=== PATIENT | male | born 1985 | race Caucasian/White ===

== ENCOUNTER 2017-04-30 21:12 | Emergency (ER) | payer OTHER ==
[2017-04-30 21:22] VITALS: BMI 28.3
[2017-04-30] MEDS ORDERED: SODIUM CHLORIDE 0.9% 1000 ML INFUS.BAG IV ONE (22:05)
[2017-04-30] MEDS ORDERED: ONDANSETRON 4 MG/2 ML VIAL IVPUSH ONE (22:05)
[2017-04-30] MEDS ORDERED: FAMOTIDINE 20 MG/50 ML IVPB 50 ML IVPB ONE ×2 (22:05→23:09)
[2017-04-30] MEDS ORDERED: PANTOPRAZOLE SODIUM 40 MG in SODIUM CHLORIDE 100 ML IVPB ONE (22:05)
[2017-04-30] MEDS ORDERED: MAG HYDROX/AL HYDROX/SIMETH 355 ML ORAL.SUSP PO ONE (22:05)
[2017-04-30] MEDS ORDERED: MAG HYDROX/AL HYDROX/SIMETH 30 ML UNIT-DOSE CUP ONE ×2 (23:09)
[2017-04-30] MEDS ORDERED: ONDANSETRON 4 MG/2 ML VIAL ONE (23:09)
[2017-04-30] MEDS ORDERED: PANTOPRAZOLE SODIUM 100 ML IVPB ONE (23:09)
[2017-04-30 23:22] LABS: MCH 28.7 pg (25.7-33.7); MCHC 33.6 g/dl (32.0-35.9); MEAN CELL VOLUME 85.5 fl (80-96); MEAN PLT VOLUME 8.2 fl (7.5-11.1); PLATELET COUNT 225 K/MM3 (134-434); RDW 13.6 % (11.9-15.9); WHITE BLOOD COUNT 8.5 K/mm3 (4.0-10.0)
[2017-04-30 23:51] LABS: ALK PHOS 79 U/L (45-117); ANION GAP 11 (8-16); BILIRUBIN,TOTAL 0.5 mg/dL (0.2-1.0); CALCIUM 8.4 mg/dL (8.5-10.1); CO2 26 mmol/L (21-32); CREATININE 0.8 mg/dL (0.7-1.3); GLUCOSE,RANDOM 92 mg/dL (74-106); SGOT/AST 38 U/L (15-37); SGPT/ALT 49 U/L (12-78)
--- NOTE | 2017-05-01 00:17 | PDOC ---
History of Present Illness - General Chief Complaint: Chest Pain Stated Complaint: NAUSEA,PAIN Time Seen by Provider: 04/30/17 21:47 - History of Present Illness Initial Comments: 05/01/17 00:44 CHIEF COMPLAINT: abdominal pain HISTORY OF PRESENT ILLNESS: 32 yo M with no PMH presents to ED with epigastric discomfort x 3 days. Patient states that he has been feeling "like I'm hungry, but it also hurts." He reports that he has felt nauseous and dizzy but has not vomited, had fever, or any diarrhea. He states that he has been taking laxatives since October prescribed by his primary care doctor because he has trouble moving his bowels sometimes. His last bowel movement was today prior to arrival to the ER. He denies drinking any alcohol since February. No recent travel or sick contacts. PAST MEDICAL HISTORY: Denies past medical history FAMILY HISTORY: Denies SOCIAL HISTORY: Denies tobacco, alcohol, illicit drug use. SURGICAL HISTORY: appendectomy ALLERGIES: PCN REVIEW OF SYSTEMS General/Constitutional: Denies fever or chills. Denies weakness, weight change. HEENT: Denies change in vision. Denies ear pain or discharge. Denies sore throat. Cardiovascular: Denies chest pain or shortness of breath. Respiratory: Denies cough, wheezing, or hemoptysis. Gastrointestinal: Nausea, epigastric discomfort x 2 days. Denies vomiting, diarrhea or constipation. Denies rectal bleeding. Genitourinary: Denies dysuria, frequency, or change in urination. Musculoskeletal: Denies joint or muscle swelling or pain. Denies neck or back pain. Skin and breasts: Denies rash or easy bruising. Neurologic: Denies headache, vertigo, loss of consciousness, or loss of sensation. PHYSICAL EXAM General Appearance: Well-appearing, appropriately dressed. No apparent distress , no intoxication. HEENT: EOMI, PERRLA, normal ENT inspection, normal voice, TMs normal, pharynx normal. No conjunctival pallor. No photophobia, scleral icterus. Neck: Supple. Trachea midline. No tenderness, rigidity, carotid bruit, stridor , lymphadenopathy, or thyromegaly. Respiratory/Chest: Lungs CTAB. Cardiovascular: RRR. S1, S2. Gastrointestinal/Abdominal: Mild epigastric tenderness. Normal bowel sounds. Abdomen soft, non-distended. No tenderness or rebound tenderness. No organomegaly, pulsatile mass, guarding, hernia, hepatomegaly, splenomegaly. Lymphatic: No adenopathy, tenderness. Musculoskeletal/Extremities: Normal inspection. FROM of all extremities, normal capillary refill. Pelvis Stable. No CVA tenderness. No tenderness to extremities, pedal edema, swelling, erythema or deformity. Integumentary: Appropriate color, dry, warm. No cyanosis, erythema, jaundice or rash Neurologic: customer account manager II-XII intact. Fully oriented, alert. Appropriate mood/affect. Motor strength 5/5. No appreciable EOM palsy, facial droop or sensory deficit. Past History - Past Medical History Allergies/Adverse Reactions: Allergies Allergy/AdvReac Type Severity Reaction Status Date / Time Penicillins Allergy Verified 04/30/17 21:19 Home Medications: Ambulatory Orders Pantoprazole Sodium [Protonix] 40 mg PO DAILY #14 tablet. 05/01/17 Cardiac Disorders: Yes (heart murmur) - Surgical History Appendectomy: Yes - Psycho/Social/Smoking Cessation Hx Suicidal Ideation: No Smoking History: Never smoked *Physical Exam - Vital Signs Last Vital Signs Temp Pulse Resp BP Pulse Ox 98.9 F 67 18 132/79 100 04/30/17 21:19 04/30/17 21:19 04/30/17 21:19 04/30/17 21:19 04/30/17 21:19 ED Treatment Course - LABORATORY CBC & Chemistry Diagram: 04/30/17 23:15 04/30/17 23:15 - ADDITIONAL ORDERS Additional order review: Laboratory Results 04/30/17 23:15 Sodium 141 Potassium 3.6 Chloride 104 Carbon Dioxide 26 Anion Gap 11 BUN 19 H Creatinine 0.8 Creat Clearance w eGFR > 60 Random Glucose 92 Calcium 8.4 L Total Bilirubin 0.5 AST 38 H ALT 49 Alkaline Phosphatase 79 Total Protein 7.0 Albumin 4.0 Lipase 199 04/30/17 23:15 RBC 5.16 MCV 85.5 MCHC 33.6 RDW 13.6 MPV 8.2 - Medications Given in the ED: ED Medications Discontinued Medications Generic Name Dose Route Start Last Admin Trade Name Freq PRN Reason Stop Dose Admin Al Hydroxide/Mg Hydroxide 30 ml 04/30/17 22:05 04/30/17 23:10 Mylanta Suspension - PO 04/30/17 22:06 30 ml ONCE ONE Administration Famotidine/Sodium Chloride 50 mls @ 100 mls/hr 04/30/17 22:05 04/30/17 23:10 Pepcid 20 Mg Premixed Ivpb - IVPB 04/30/17 22:34 100 mls/hr ONCE ONE Administration Ondansetron HCl 4 mg 04/30/17 22:05 04/30/17 23:10 Zofran Injection IVPUSH 04/30/17 22:06 4 mg ONCE ONE Administration Sodium Chloride 1,000 ml 04/30/17 22:05 04/30/17 23:10 Normal Saline - IV 04/30/17 22:06 1,000 ml ONCE ONE Administration Medical Decision Making - Medical Decision Making 05/01/17 01:04 32 yo M with no PMH presents to ED with epigastric discomfort x 3 days. -CBC, CMP, lipase -IVF, Zofran, Pepcid, Protonix, Maalox Patient reassessed; states his dizziness and nausea have resolved but he continues to have the sensation that he is "hungry with pain" even though he is not hungry. -Abdomen ultrasound -Carafate po ultrasound results - Findings: And the proximal IVC has a normal appearance. The liver parenchyma is hyperechoic indicative of fatty infiltration. The liver is enlarged measuring 18.2 cm in length. Hepatopetal flow is demonstrated in the main portal vein. The CBD measures 3 mm in diameter within normal limits. The right kidney has a normal appearance and echotexture measures 10.5 cm in length. No parenchymal mass, shadowing calculus or hydronephrosis is seen. The gallbladder has a normal appearance. No sludge or shadowing calculi are seen. There is no mural thickening or pericholecystic fluid. Impression: Hepatic steatosis and hepatomegaly. Normal appearance of the gallbladder CBD and right kidney. Read by: Arian Morales M.D. Advised patient to f/u with GI for further evaluation of GERD and possible PUD. Advised patient of signs and symptoms for return to ER; patient verbalized understanding and agrees to plan. 05/01/17 01:56 *DC/Admit/Observation/Transfer Diagnosis at time of Disposition: GERD (gastroesophageal reflux disease) Qualifiers: Esophagitis presence: esophagitis presence not specified Qualified Code(s): K21.9 - Gastro-esophageal reflux disease without esophagitis - Discharge Dispostion Admit: No - Prescriptions Prescriptions: Pantoprazole Sodium [Protonix] 40 mg PO DAILY #14 tablet.dr - Referrals Referrals: Estelle Masters MD [Primary Care Provider] - Gregory Carlson MD [Non Staff, Medical] - - Patient Instructions Printed Discharge Instructions: DI for Gastroesophageal Reflux Disease (GERD) Additional Instructions: Please take medication as prescribed and follow up with gastroenterology next week as discussed. A referral has been provided. If you experience any new chest pain, shortness of breath, palpitations, fever, vomiting, diarrhea, rectal bleeding, or any new or worsening symptoms, please return to the ER. Print Language: HAITIAN
[2017-05-01] MEDS ORDERED: SUCRALFATE 1 GM/10 ML UNIT DOSE CUPS PO ONE (00:54)
[2017-05-01] MEDS ORDERED: ACETAMINOPHEN 1000 MG/100 ML VIAL (NON FORMULARY) IVPB ONE (00:54)
[2017-05-01] MEDS ORDERED: SUCRALFATE 1 GM TABLET (FP) ONE (01:23)
[2017-05-01 02:05] VITALS: BP 128/70; PULSE 72; TEMP 98.5
--- NOTE | 2017-05-02 10:20 | EKG ---
Test Reason : Blood Pressure : / mmHG Vent. Rate : 063 BPM Atrial Rate : 063 BPM P-R Int : 148 ms QRS Dur : 084 ms QT Int : 408 ms P-R-T Axes : 013 061 018 degrees QTc Int : 417 ms NORMAL SINUS RHYTHM NORMAL ECG NO PREVIOUS ECGS AVAILABLE Confirmed by BILL HAYDEN MD ([id number] on 05/02/2017 10:20:02 AM Referred By: Confirmed By:BILL HAYDEN MD
== END 2017-05-01 02:04 | disposition home or self-care (01) ==
LOC: JER 21:12
PROC: 3E033GC Introduction of Other Therapeutic Substance into Peripheral Vein, Percutaneous Approach (ICD-10-PCS; principal; 2017-04-30)
DX: K21.9 Gastro-esophageal reflux disease without esophagitis (principal)
CPT/HCPCS: 36415; 76705-TC; 80053; 83690; 85027; 93005; 93010; 99283-25

== ENCOUNTER 2020-12-18 21:53 | Emergency (ER) | payer BC, OTHER ==
[2020-12-18 22:07] VITALS: BP 120/79; PULSE 74; TEMP 98.2; BMI 29.0
== END 2020-12-19 01:09 | disposition home or self-care (01) ==
LOC: JER 21:53
DX: F41.0 Panic disorder [episodic paroxysmal anxiety] (principal)
CPT/HCPCS: 93005; 93010; 99283-25

== ENCOUNTER 2022-02-08 22:01 | Emergency (ER) | payer BC ==
[2022-02-08 22:17] VITALS: BP 127/79; PULSE 89; TEMP 98.1; BMI 29.7
[2022-02-08] MEDS ORDERED: OXYMETAZOLINE 0.05% NASAL SOLUTION 15 ML BOTTLE NS ONE (23:15)
[2022-02-08 23:35] LABS: BASO % 0.3 % (0-2.0); EOS % 0.7 % (0-4.5); HEMATOCRIT 45.7 % (35.4-49); HEMOGLOBIN 15.9 GM/dL (11.7-16.9); LYMPH % 17.1 % (8-40); MCH 29.8 pg (25.7-33.7); MCHC 34.8 g/dl (32.0-35.9); MEAN CELL VOLUME 85.7 fl (80-96); MEAN PLT VOLUME 7.6 fl (7.5-11.1); MONO % 10.4 % (3.8-10.2); NEUT % 71.5 % (42.8-82.8); PLATELET COUNT 246 10^3/uL (134-434); RBC 5.33 M/mm3 (4.00-5.60); RDW 13.3 % (11.9-15.9); WHITE BLOOD COUNT 7.5 K/mm3 (4.0-10.0)
[2022-02-08 23:37] LABS: PH,URINE 6.5 (5.0-8.0); URINE APPEARANCE CLEAR; URINE BILIRUBIN NEGATIVE (NEGATIVE); URINE COLOR YELLOW; URINE GLUCOSE (UA) NEGATIVE (NEGATIVE); URINE KETONE TRACE (NEGATIVE); URINE LEUK ESTERASE NEGATIVE (NEGATIVE); URINE NITRITE NEGATIVE (NEGATIVE); URINE PROTEIN NEGATIVE (NEGATIVE)
[2022-02-08 23:41] LABS: INR 1.13 (0.83-1.09)
[2022-02-08 23:43] LABS: ACTIVATED PTT 33.2 SECONDS (25.2-36.5)
[2022-02-08 23:56] LABS: CALCIUM 8.5 mg/dL (8.5-10.1)
[2022-02-08 23:57] LABS: BLOOD UREA NITROGEN 17.7 mg/dL (7-18)
[2022-02-09 00:02] LABS: BILIRUBIN,TOTAL 0.6 mg/dL (0.2-1); TOT PROT 7.4 g/dl (6.4-8.2)
[2022-02-10 05:08] LABS: SARS-CoV-2 NAA Detected (Not Detected)
== END 2022-02-09 00:40 | disposition home or self-care (01) ==
LOC: JER 22:01
DX: R04.0 Epistaxis (principal)
CPT/HCPCS: 36415; 80053; 81003; 85025; 85610; 85730; 87070; 87086; 87651; 99283-25; C9803-CS; U0003; U0005

== ENCOUNTER 2022-05-16 17:12 | Emergency (ER) | payer BC ==
[2022-05-16 17:32] VITALS: BP 126/57; PULSE 72; TEMP 98.6; BMI 26.2
[2022-05-16] MEDS ORDERED: LORATADINE 10 MG TABLET PO ONE (18:45)
[2022-05-16] MEDS ORDERED: LORATADINE 10 MG TABLET ONE (18:56)
== END 2022-05-16 19:22 | disposition home or self-care (01) ==
LOC: JERFT 17:12 → JER 17:12 → JERFT 19:22
DX: T78.40XA Allergy, unspecified, initial encounter (principal)
CPT/HCPCS: 99283-25